=== PATIENT | male | born 1945 | race Caucasian/White ===

== ENCOUNTER → 2016-08-30 | Outpatient (CLI) | payer OTHER ==
--- NOTE | 2016-08-30 12:16 | KCIC ---
PROCEDURE MR of the right shoulder HISTORY Right shoulder pain. TECHNIQUE Standard multiplanar sequences are obtained. COMPARISON None FINDINGS The acromioclavicular joint is mildly degenerative. There is diffuse thickening with some increased signal of the rotator cuff compatible with tendinosis. There is a broad intrasubstance fluid defect within the rotator cuff at the supraspinatus infraspinatus confluence does not completely violate the undersurface or bursal surface, but comes very close, with only about 1 millimeter bursal surface tissue overlying defect and similar amount of undersurface tissue at the defect. Partial tearing of the subscapularis tendon. Moderate rotator cuff muscle atrophy with volume loss and fatty infiltration. Severe primary osteoarthritis at the glenohumeral joint. Volume loss and flattening of the glenoid and the humeral head. Circumferential degenerative tearing of the labrum. Moderate tendinosis of the proximal biceps tendon. No complete rupture or dislocation. No aggressive bone destruction. No acute fracture. Degenerative subchondral cysts are identified at the glenohumeral joint. There is a large fatty mass identified along the posterior scapula, and anterior to the infra spinatus and teres minor muscles. Measures approximately 6.5 centimeters height by 7 centimeters wide by 5.5 centimeters AP. This demonstrates fairly homogeneous fatty signal characteristics. Some mild internal septations or muscle fibers are seen. There is an additional smaller fatty mass identified anterior to the proximal humerus. This measures greater than 7.5 centimeters height by 4.6 centimeters wide by 3 centimeters AP. This extends slightly below the field of view. This also has homogeneous fatty signal characteristics on all sequences and is also compatible with a lipoma. Small glenohumeral joint effusion. IMPRESSION 1. Severe primary osteoarthritis at the glenohumeral joint with circumferential labrum tear. 2. Broad intrasubstance tear of the supraspinatus-infraspinatus tendon confluence but without actual undersurface or bursal surface violation. Partial subscapularis tendon tear. 3. 2 fatty masses are identified about the shoulder, compatible with lipomas. 4. Proximal biceps tendinosis. Electronically signed by: Lavon Valentin MD (Aug 30, 2016 12:15:24)
== END | disposition home or self-care (01) ==
LOC: KCIC MRI 10:13
PROVIDERS: ATTEND Family Medicine
DX: M19.011 Primary osteoarthritis, right shoulder (principal); S43.491A Other sprain of right shoulder joint, initial encounter; S46.911A Strain of unspecified muscle, fascia and tendon at shoulder and upper arm level, right arm, initial encounter; X58.XXXA Exposure to other specified factors, initial encounter; Y93.89 Activity, other specified; Y92.89 Other specified places as the place of occurrence of the external cause; Y99.8 Other external cause status
CPT/HCPCS: 73221